=== PATIENT | female | born 1970 | race Caucasian/White ===

== ENCOUNTER 2023-02-02 06:16 | Emergency (ER) | payer BC, SELFPAY ==
--- NOTE | 2023-02-02 06:18 | ECG_ITS ---
Measurements Intervals [place] Rate: 65 P: 70 HI: 126 QRS: 85 QRSD: 89 T: 90 QT: 409 QTc: 427 Interpretive Statements SINUS RHYTHM NONSPECIFIC T-WAVE ABNORMALITY LEFT VENTRICLE HYPERTROPHY ABNORMAL ECG NO PREVIOUS ECG AVAILABLE FOR COMPARISON Electronically Signed On 02-03-2023 12:43:09 CDT by Ld Urbina M.D.
[2023-02-02 06:20] VITALS: BP 154/90; PULSE 70; PULSE 73; RESP 18; TEMP 36.6; O2SAT 100
--- NOTE | 2023-02-02 06:53 | ED.GENADULT ---
HPI - General Adult General Chief complaint: Chest Pain Stated complaint: CHEST PAIN Time Seen by Provider: 02/02/23 06:34 History of Present Illness HPI narrative: 52yo woman s/p ascending aortic aneurysm repair in August 2022 (5 months ago) in [place], now moved to our area, presents with concern for sharp pain in her back radiating through to her chest that comes on suddenly, is very sharp and acute, and then goes away after 5-10 minutes. Has had this several times. Seen in ED once before and had all normal EKG, bloodwork, and contrasted CT scan. Has talked to her cardiac surgeon who has reassured her that everything with the surgery went well, looks normal, and that her aorta is repaired and safe. Pain is not associated with any meals. Tends to hit her while sitting in the car. Is completely gone now. Related Data Home Medications Medication Instructions Recorded Confirmed cyclobenzaprine 10 mg tablet 10 mg PO HS 02/02/23 02/02/23 hydroxyzine HCl 25 mg tablet 25 mg PO BID 02/02/23 02/02/23 Allergies Allergy/AdvReac Type Severity Reaction Status Date / Time No Known Allergies Allergy Verified 02/02/23 06:33 Review of Systems Review of Systems: All systems reviewed & are unremarkable except as noted in HPI and below Constitutional: Constitutional: Denies chills and Denies fever(s) ENT: Denies dysphagia Cardiovascular: Cardiovascular: Reports chest pain Respiratory: Respiratory: Denies dyspnea Gastrointestinal: Gastrointestinal: Denies abdominal pain Exam Const: General: healthy appearing and no acute distress Nutritional Appearance: well nourished Eyes: Conjunctivae: conjunctivae normal Resp: Effort & Inspection: normal respiratory effort Auscultation: clear to auscultation bilaterally Cardio: Rate: regular rate Rhythm: regular rhythm Heart sounds: no murmurs GI: Inspection: non-distended GI Palp: Yes Soft to palpation and No Tenderness to palpation present (GI) Skin: General skin exam: normal color, no jaundice and no pallor Neuro: General: patient oriented x3 and moves all extremities Gait exam (Neuro): Normal gait present Course Vital Signs Vital signs: Vital Signs Temperature 36.6 C 02/02/23 06:20 Pulse Rate 70 02/02/23 06:20 Respiratory Rate 18 02/02/23 06:20 Blood Pressure 154/90 H 02/02/23 06:20 Pulse Oximetry 100 02/02/23 06:20 Oxygen Delivery Room Air 02/02/23 06:20 Temperature 36.6 C 02/02/23 06:20 Pulse Rate 69 02/02/23 06:59 Respiratory Rate 18 02/02/23 06:59 Blood Pressure 140/78 02/02/23 06:59 Pulse Oximetry 100 02/02/23 06:59 Oxygen Delivery Room Air 02/02/23 06:59 Medical Decision Making MDM Narrative Medical decision making narrative: acute chest pain DDx likely postsurgical pain/scarring/spasm, possibly esophageal, unlikely coronary syndrome, no evidence of venous thromboembolism or renewed aortic pathology. HEART score = 1 for age. Vital Signs Vital Signs: Vital Signs Temperature 36.6 C 02/02/23 06:20 Pulse Rate 70 02/02/23 06:20 Respiratory Rate 18 02/02/23 06:20 Blood Pressure 154/90 H 02/02/23 06:20 Pulse Oximetry 100 02/02/23 06:20 Oxygen Delivery Room Air 02/02/23 06:20 Temperature 36.6 C 02/02/23 06:20 Pulse Rate 69 02/02/23 06:59 Respiratory Rate 18 02/02/23 06:59 Blood Pressure 140/78 02/02/23 06:59 Pulse Oximetry 100 02/02/23 06:59 Oxygen Delivery Room Air 02/02/23 06:59 Lab Data Lab results reviewed: Yes I reviewed the patient's lab results. 02/02/23 06:55 02/02/23 06:55 Labs: Lab Results 02/02/23 Range/Units 06:55 WBC 5.3 (4.8-10.8) K/mm3 RBC 4.61 (4.20-5.40) M/mm3 Hgb 13.4 (12.0-15.0) g/dL Hct 40.1 (35.0-49.0) % MCV 87.0 (78.0-102.0) fL MCH 29.1 (27.0-31.0) pg MCHC 33.4 (32.0-36.0) g/dL RDW 13.6 (11.6-14.4) % Plt Count 267 (150-420) K/mm3 MPV 9.1 L (9.2-11.8) fl Im
[2023-02-02 06:59] VITALS: BP 140/78; PULSE 69; RESP 18; O2SAT 100
[2023-02-02 07:00] VITALS: PULSE 72; RESP 16; O2SAT 100
[2023-02-02 07:01] VITALS: BP 140/87; PULSE 70; RESP 16; O2SAT 100
[2023-02-02 07:01] LABS: Basophils Absolute Auto 0.06 K/mm3 (0.00-0.10); Basophils Percent Auto 1.1 % (0.0-1.0); Eosinophils Absolute Auto 0.24 K/mm3 (0.02-0.50); Eosinophils Percent Auto 4.6 % (1.0-6.0); Hematocrit 40.1 % (35.0-49.0); Hemoglobin 13.4 g/dL (12.0-15.0); Immature Granulocyte Absolute 0.01 K/mm3 (0.00-0.00); Immature Granulocyte Percent A 0.2 % (0.0-0.0); Lymphocytes Absolute Auto 1.67 K/mm3 (1.10-4.50); Lymphocytes Percent Auto 31.7 % (18.0-42.0); Mean Corpuscular HGB Conc 33.4 g/dL (32.0-36.0); Mean Corpuscular Hemoglobin 29.1 pg (27.0-31.0); Mean Platelet Volume 9.1 fl (9.2-11.8); Monocytes Absolute Auto 0.56 K/mm3 (0.10-0.90); Monocytes Percent Auto 10.6 % (2.0-11.0); Neutrophils Absolute Auto 2.7 K/mm3 (1.7-7.2); Neutrophils Percent Auto 51.8 % (50.0-70.0); Platelet Count Result 267 K/mm3 (150-420); Red Blood Count 4.61 M/mm3 (4.20-5.40); Red Cell Distribution Width 13.6 % (11.6-14.4); White Blood Count 5.3 K/mm3 (4.8-10.8)
[2023-02-02 07:15] VITALS: PULSE 67; RESP 16; O2SAT 99
[2023-02-02 07:16] VITALS: BP 128/81; PULSE 72; RESP 14; O2SAT 99
[2023-02-02 07:17] LABS: Alanine Aminotransferase 16 U/L (14-59); Albumin Level 3.7 g/dL (3.4-5.0); Alkaline Phosphatase 89 U/L (46-116); Anion Gap 11 mmol/L (8-16); Aspartate Amino Transferase 25 U/L (15-37); Bilirubin,Total 0.5 mg/dL (0.00-1.00); Blood Urea Nitrogen 19 mg/dL (7-18); Calcium 8.6 mg/dL (8.5-10.1); Carbon Dioxide 27 mmol/L (21-32); Chloride 105 mmol/L (98-108); Estimated CRCL calculation 46 ml/min; Estimated Glomerular Filt Rate 47; Glucose 91 mg/dL (70-99); Osmolality Calculated 298 mOsm/kg (285-295); Potassium 3.6 mmol/L (3.5-5.1); Sodium 143 mmol/L (136-145); Total Protein 7.5 g/dL (6.4-8.2); Troponin I < 4.0 ng/L (0.00-60.4)
== END 2023-02-02 07:25 | disposition home or self-care (01) ==
PROVIDERS: Emergency Provider Emergency Medicine
DX: R07.89 Other chest pain (principal)
CPT/HCPCS: 36415; 80053; 84484; 85025; 93005; 99284

== ENCOUNTER 2023-04-12 17:18 | Emergency (ER) | payer BC, SELFPAY ==
--- NOTE | ~2023-04-12 | CT_ITS ---
EXAMINATION: CT abdomen pelvis w con INDICATION: Left groin pain TECHNIQUE: Computed tomographic images of the abdomen and pelvis were obtained after the administrati on of 100 cc of Omnipaque 350 intravenous contrast. The dose-length product (DLP) was 654.27 mGy-cm. Automated exposure control and iterative reconstruction technique were employed. COMPARISON: None available FINDINGS: Minimal dependent atelectasis is present in the lung bases. The heart size is normal. There is a small sliding hiatal hernia. Changes of median sternotomy are noted. Punctate calcifications in an otherwise normal spleen likely represent healed granulomatous disease. The liver, pancreas, and a drenal glands are normal. There are stones in the nondistended gallbladder. There is a 3 mm nonobstru cting stone of the right kidney. Nonobstructing stones of the left kidney measure up to 3 [address] No path ologically enlarged abdominal or pelvic lymph nodes are identified. No free intraperitoneal gas or ev idence of bowel obstruction. A moderate volume of colonic stool is present. There is formed stool in nondilated loops of distal small bowel, consistent with slow transit. There is mild lumbar spondylosi s. A large volume of colonic stool is present. IMPRESSION: 1. Bilateral nonobstructing nephrolithiasis. 2. Constipation. 3. Cholelithiasis without cholecystitis. 4. Formed stool in nondilated loops of distal small bowel, consistent with slow transit. Reviewed, dictated and finalized at location F.
[2023-04-12 17:18] VITALS: BP 168/83; PULSE 70; RESP 16; TEMP 36; O2SAT 100
[2023-04-12 18:01] LABS: Pregnancy On Board Control Positive; Urine Pregnancy Test Negative
[2023-04-12] MEDS: SODIUM CHLORIDE 0.9% IV 1,000 ML 999 ML IV CONT (18:03)
[2023-04-12 18:10] LABS: Basophils Absolute Auto 0.08 K/mm3 (0.00-0.10); Basophils Percent Auto 1.2 % (0.0-1.0); Eosinophils Absolute Auto 0.29 K/mm3 (0.02-0.50); Eosinophils Percent Auto 4.3 % (1.0-6.0); Hematocrit 36.8 % (35.0-49.0); Hemoglobin 12.4 g/dL (12.0-15.0); Immature Granulocyte Absolute 0.02 K/mm3 (0.00-0.00); Immature Granulocyte Percent A 0.3 % (0.0-0.0); Lymphocytes Absolute Auto 2.29 K/mm3 (1.10-4.50); Lymphocytes Percent Auto 33.6 % (18.0-42.0); Mean Corpuscular HGB Conc 33.7 g/dL (32.0-36.0); Mean Corpuscular Volume 88.9 fL (78.0-102.0); Mean Platelet Volume 8.9 fl (9.2-11.8); Monocytes Absolute Auto 0.55 K/mm3 (0.10-0.90); Monocytes Percent Auto 8.1 % (2.0-11.0); Neutrophils Absolute Auto 3.6 K/mm3 (1.7-7.2); Neutrophils Percent Auto 52.5 % (50.0-70.0); Platelet Count Result 291 K/mm3 (150-420); Red Blood Count 4.14 M/mm3 (4.20-5.40); Red Cell Distribution Width 13.2 % (11.6-14.4); White Blood Count 6.8 K/mm3 (4.8-10.8)
[2023-04-12 18:18] LABS: Appearance Urine Clear (Clear); Bilirubin Urine Negative (Negative); Blood Urine Negative (Negative); Color Urine Light Yellow (Yellow); Glucose Urine UA Negative (Negative); Ketones Urine Negative (Negative); Leukocyte Esterase Ur 1+ LEU/UL (Negative); Nitrate Urine Negative (Negative); Protein Urine Negative (Negative); Urobilinogen Urine 0.2 mg/dL (0.2-1.0)
[2023-04-12 18:24] LABS: Add Urine Microscopic? YES; Bacteria Urine 1+ /hpf; RBC Urine 0-2 /hpf (0-2); Squamous Epithelial Cell Urine Occasional /hpf (Few)
[2023-04-12 18:27] LABS: Alanine Aminotransferase 35 U/L (14-59); Albumin Level 3.8 g/dL (3.4-5.0); Alkaline Phosphatase 96 U/L (46-116); Anion Gap 10 mmol/L (8-16); Aspartate Amino Transferase 15 U/L (15-37); Bilirubin,Total 0.3 mg/dL (0.00-1.00); Blood Urea Nitrogen 14 mg/dL (7-18); Carbon Dioxide 29 mmol/L (21-32); Chloride 104 mmol/L (98-108); Estimated CRCL calculation 53 ml/min; Estimated Glomerular Filt Rate 56; Glucose 97 mg/dL (70-99); Lipase 44 U/L (16-77); Osmolality Calculated 296 mOsm/kg (285-295); Potassium 3.9 mmol/L (3.5-5.1); Sodium 143 mmol/L (136-145); Total Protein 7.4 g/dL (6.4-8.2)
[2023-04-12 18:31] LABS: INR 0.9; Partial Thromboplastin Time 28.6 SEC (23.90-30.70); Prothrombin Time 10.4 Seconds (9.50-12.10)
[2023-04-12 18:33] LABS: Lactic Acid Reflex 0.6 mmol/L (0.4-2.0)
[2023-04-12 19:00] VITALS: BP 138/90; PULSE 80; RESP 20; O2SAT 97
--- NOTE | 2023-04-12 19:08 | PC.NURSE ---
PATIENT BACK IN ROOM FROM CT. IVF CONTINUED.
[2023-04-12 19:40] VITALS: BP 132/89; PULSE 72; RESP 20; TEMP 36.6; O2SAT 97
--- NOTE | 2023-04-12 20:01 | ED.ABDPAIN ---
HPI - Abdominal Pain General Chief Complaint: Abdominal Pain Stated Complaint: lower abdominal pain and cramping Time Seen by Provider: 04/12/23 17:26 Source: patient Mode of arrival: ambulatory Limitations: no limitations History of Present Illness HPI narrative: this is a 52-year-old female that presents with abdominal discomfort suprapubic tenderness with mild dysuria with no hematuria no flank pain no fever chills, the patient does have a history of diverticulosis there is no diarrhea or constipation. MD elicited complaint: abdominal pain Pertinent past history: none Onset (ago): day(s) Pain Consistency: intermittent Severity: moderate Quality: aching Migration to: suprapubic Related Data Home Medications Medication Instructions Recorded Confirmed hydroxyzine HCl 25 mg tablet 25 mg PO BID 02/02/23 04/12/23 Allergies Allergy/AdvReac Type Severity Reaction Status Date / Time No Known Allergies Allergy Verified 04/12/23 17:38 Review of Systems Review of Systems: All systems reviewed & are unremarkable except as noted in HPI and below PMFSH Past Medical History Medical History Diverticulosis Exam Const: General: healthy appearing Nutritional Appearance: well nourished Orientation/consciousness: patient oriented x3 Limitations: no limitations HENMT: Head: normal to inspection Eyes: Conjunctivae: conjunctivae normal Pupils: Equal, round and reactive pupils present Neck: Neck: normal visual inspection Chest: Chest palpation & inspection: normal inspection of the chest Resp: Effort & Inspection: normal respiratory effort Auscultation: clear to auscultation bilaterally Cardio: Rate: regular rate Rhythm: regular rhythm GI: GI Palp: Yes Soft to palpation : General: Yes Bladder palpation abnormal ( suprapubic tenderness with palpation) Skin: General skin exam: normal color Rashes: no rashes Extrem: General: normal to inspection Psych: Mental Status: mental status grossly normal Affect: normal affect Course Course Emergency Course: patient was given ceftriaxone for a urinary tract infection, pain medication and labs reviewed with patient which did show that she has a urinary tract infection otherwise afebrile CT scan reviewed with patient which showed no evidence of diverticulitis, no other acute abnormalities. Vital Signs Vital signs: Vital Signs Temperature 36.0 C L 04/12/23 17:18 Pulse Rate 70 04/12/23 17:18 Respiratory Rate 16 04/12/23 17:18 Blood Pressure 168/83 H 04/12/23 17:18 Pulse Oximetry 100 04/12/23 17:18 Oxygen Delivery Room Air 04/12/23 17:18 Temperature 36.0 C L 04/12/23 17:18 Pulse Rate 70 04/12/23 17:18 Respiratory Rate 16 04/12/23 17:18 Blood Pressure 168/83 H 04/12/23 17:18 Pulse Oximetry 100 04/12/23 17:18 Oxygen Delivery Room Air 04/12/23 17:18 MDM - Abdominal Pain Lab Data 04/12/23 18:06 04/12/23 18:06 Labs: Lab Results 04/12/23 04/12/23 Range/Units 17:53 18:06 WBC 6.8 (4.8-10.8) K/mm3 RBC 4.14 L (4.20-5.40) M/mm3 Hgb 12.4 (12.0-15.0) g/dL Hct 36.8 (35.0-49.0) % MCV 88.9 (78.0-102.0) fL MCH 30.0 (27.0-31.0) pg MCHC 33.7 (32.0-36.0) g/dL RDW 13.2 (11.6-14.4) % Plt Count 291 (150-420) K/mm3 MPV 8.9 L (9.2-11.8) fl Immature Gran % (Auto) 0.3 H (0.0-0.0) % Neut % (Auto) 52.5 (50.0-70.0) % Lymph % (Auto) 33.6 (18.0-42.0) % [place] % (Auto) 8.1 (2.0-11.0) % Eos % (Auto) 4.3 (1.0-6.0) % Baso % (Auto) 1.2 H (0.0-1.0) % Lymph # (Auto) 2.29 (1.10-4.50) K/mm3 [place] # (Auto) 0.55 (0.10-0.90) K/mm3 Eos # (Auto) 0.29 (0.02-0.50) K/mm3 Baso # (Auto) 0.08 (0.00-0.10) K/mm3 Abs Immat Gran (auto) 0.02 H (0.00-0.00) K/mm3 Absolute Neuts (auto) 3.6 (1.7-7.2) K/mm3 Absolute Nucleated RBC 0.00 (0.00-0.00) K/mm3 Nucleated RBC % 0.0 (0-0.0) %
[2023-04-12 20:15] VITALS: BP 140/88; PULSE 78; RESP 20; TEMP 36.6; O2SAT 97
--- NOTE | 2023-04-15 12:11 | PC.NURSE ---
final urine culture report reviewed. mixed genital mitchell isolated. these superficial bacteria are not indicative of a utI. no change in plan of care.
== END 2023-04-12 20:27 | disposition home or self-care (01) ==
PROVIDERS: Emergency Provider Emergency Medicine
DX: N30.00 Acute cystitis without hematuria (principal)
CPT/HCPCS: 36415; 74177; 80053; 81001; 81025; 83605; 83690; 85025; 85610; 85730; 87086; 87088; 96361; 96365; 99284; J0696; J7030; Q9967